=== PATIENT | female | born 1980 | race Caucasian/White ===

== ENCOUNTER 2017-09-23 07:58 | Outpatient (CLI) | payer OTHER | END 2017-09-23 07:59 | disposition home or self-care (01) | LOC: BICMRI 07:58 | PROVIDERS: ATTEND Psychiatry & Neurology Neurology | DX: G35 Multiple sclerosis (principal) | CPT/HCPCS: 70551 ==

== ENCOUNTER 2018-02-10 15:17 | Outpatient (CLI) | payer OTHER | END 2018-02-10 15:18 | disposition home or self-care (01) | LOC: BICMRI 15:17 | PROVIDERS: ATTEND Psychiatry & Neurology Neurology | DX: G35 Multiple sclerosis (principal) | CPT/HCPCS: 70553 ==